=== PATIENT | male | born 1990 | race Caucasian/White ===

== ENCOUNTER 2021-02-07 23:23 | Emergency (ER) | payer SELFPAY ==
--- NOTE | 2021-02-07 23:47 | EDM.PDOC ---
ED HPI GENERAL MEDICAL PROBLEM - General Chief Complaint: Abdominal Pain Stated Complaint: ABDOMINAL PAIN Time Seen by Provider: 02/07/21 23:36 Source of Information: Reports: Patient History Limitations: Reports: No Limitations - History of Present Illness INITIAL COMMENTS - FREE TEXT/NARRATIVE: 30-year-old male past medical history cirrhosis, pancreatitis presents for abdominal pain. Patient is a very poor historian and seems to have very limited understanding of his health pathology. Patient was recently discharged from hospital in [place] after being diagnosed with pancreatitis and cirrhosis. He does endorse alcohol use. Patient had follow-up labs drawn and was called and told that all of his results are getting worse. He was told that his blood is "like somebody that took rat poison". When he heard this he was concerned that he might be bleeding in his abdomen since his pain has been increasing over the last couple of days. Denies fevers. Patient does state that he was given referrals for after his discharge from [place] but that he did not actually go through the paperwork or make any follow-up appointments. He states that he was told to start several medications but has not started any new medications. He was told that he may need a liver transplant. Abdomen Pain Score (Numeric/FACES): 7 - Related Data Allergies Allergy/AdvReac Type Severity Reaction Status Date / Time No Known Allergies Allergy Verified 02/07/21 23:39 Home Meds: Home Meds Amphetamine/Dextroamphetamine [Adderall] 20 mg PO TID 02/07/21 [History] ondansetron HCL [Zofran] 4 mg PO ASDIRECTED PRN 02/07/21 [History] ED ROS GENERAL - Review of Systems Review Of Systems: Comprehensive ROS is negative, except as noted in HPI. ED EXAM, GENERAL - Physical Exam Exam: See Below Exam Limited By: No Limitations General Appearance: Alert, WD/WN, No Apparent Distress Eye Exam: Bilateral Eye: Other (Scleral icterus) Ears: Hearing Grossly Normal Throat/Mouth: Normal Voice, No Airway Compromise Head: Atraumatic, Normocephalic Neck: Normal Inspection Respiratory/Chest: No Respiratory Distress, Lungs Clear, Normal Breath Sounds, No Accessory Muscle Use Cardiovascular: Normal Peripheral Pulses, Tachycardia GI/Abdominal: Soft, Non-Tender, Distended Extremities: Normal Inspection Neurological: Alert, Normal Cognition, Normal Gait Psychiatric: Normal Affect, Normal Mood Skin Exam: Warm, Dry, Intact, Normal Color Course - Vital Signs Last Recorded V/S: Last Vital Signs Temp 98.7 F 02/07/21 23:40 Pulse 108 H 02/08/21 01:35 Resp 18 02/08/21 01:35 BP 140/94 H 02/08/21 01:35 Pulse Ox 97 02/08/21 01:35 - Orders/Labs/Meds Orders: Active Orders 24 hr Category Date Time Status Sodium Chloride 0.9% [Saline Flush] Med 02/07/21 23:57 Active 10 ml FLUSH ASDIRECTED PRN Sodium Chloride 0.9% [Saline Flush] Med 02/07/21 23:57 Active 2.5 ml FLUSH ASDIRECTED PRN Saline Lock Insert [OM.PC] Stat Oth 02/07/21 23:57 Ordered Medication Orders Sodium Chloride (Sodium Chloride 0.9% 10 Ml Syringe) 10 ml FLUSH ASDIRECTED PRN PRN Reason: Keep Vein Open Sodium Chloride (Sodium Chloride 0.9% 2.5 Ml Syringe) 2.5 ml FLUSH ASDIRECTED PRN PRN Reason: Keep Vein Open Labs: Laboratory Tests 02/08/21 02/08/21 02/08/21 Range/Units 00:00 00:00 00:00 WBC 12.38 H (4.0-11.0) K/uL RBC 3.74 L (4.50-5.90) M/uL Hgb 12.6 L (13.0-17.0) g/dL Hct 35.4 L (38.0-50.0) % MCV 94.7 (80.0-98.0) fL MCH 33.7 H (27.0-32.0) pg MCHC 35.6 (31.0-37.0) g/dL RDW Std Deviation 56.3 (28.0-62.0) fl RDW Coeff of Grecia 16 H (11.0-15.0) % Plt Count 218 (150-400) K/uL MPV 9.30 (7.40-12.00) fL Neut % (Auto) 66.3 (48.0-80.0) % Lymph % (Auto) 21.7 (16.0-40.0) % Toombs % (Auto) 8.2 (0.0-15.0) % Eos % (Auto) 2.3 (0.0-7.0) % Baso % (Auto) 1.5 (0.0-1.5) % Neut # (Auto) 8.2 H (1.4-5.7) K/uL Lymph # (Auto) 2.7 H (0.6-2.4) K/uL Toombs # (Auto) 1.0 H (0.0-0.8) K/uL Eos # (Auto) 0.3 (0.0-0.7) K/uL Baso # (Auto) 0.2 H (0.0-0.1) K/uL Nucleated RBC % 0.0 /100WBC Nucleated RBCs # 0 K/uL INR 1.55 APTT 31.3 (18.6-31.3) SEC Sodium 139 (136-148) mmol/L Potassium 3.7 (3.5-5.1) mmol/L Chloride 101 (98-107) mmol/L Carbon Dioxide 28.6 (21.0-32.0) mmol/L BUN 4 L (7.0-18.0) mg/dL Creatinine 0.8 (0.8-1.3) mg/dL Est Cr Clr Drug Dosing 139.41 mL/min Estimated GFR (MDRD) > 60.0 ml/min Glucose 123 H (74-106) mg/dL Lactic Acid (0.4-2.0) mmol/L Calcium 8.4 L (8.5-10.1) mg/dL Magnesium 2.2 (1.8-2.4) mg/dL Total Bilirubin 7.5 H (0.2-1.0) mg/dL AST 234 H (15-37) IU/L ALT 99 H (14-63) IU/L Alkaline Phosphatase 218 H (46-116) U/L Ammonia (19-54) ug/dL Total Protein 8.0 (6.4-8.2) g/dL Albumin 3.1 L (3.4-5.0) g/dL Globulin 4.9 H (2.6-4.0) g/dL Albumin/Globulin Ratio 0.6 L (0.9-1.6) Lipase 1736 H (73-393) U/L Urine Color Urine Appearance Urine pH (5.0-8.0) Ur Specific Greer (1.001-1.035) Urine Protein (NEGATIVE) mg/dL Urine Glucose (UA) (NEGATIVE) mg/dL Urine Ketones (NEGATIVE) mg/dL Urine Occult Blood (NEGATIVE) Urine Nitrite (NEGATIVE) Urine Bilirubin (NEGATIVE) Urine Ictotest Urine Urobilinogen (<2.0) EU/dL Ur Leukocyte Esterase (NEGATIVE) U Hyaline Cast (Auto) (0-2/LPF) Urine RBC (0-2/HPF) Urine WBC (0-5/HPF) Ur Epithelial Cells (NONE-FEW) Urine Bacteria (NEGATIVE) Urine Mucus (NONE-MOD) Ethyl Alcohol 311 mg/dL 02/08/21 02/08/21 02/08/21 Range/Units 00:00 00:00 00:05 WBC (4.0-11.0) K/uL RBC (4.50-5.90) M/uL Hgb (13.0-17.0) g/dL Hct (38.0-50.0) % MCV (80.0-98.0) fL MCH (27.0-32.0) pg MCHC (31.0-37.0) g/dL RDW Std Deviation (28.0-62.0) fl RDW Coeff of Grecia (11.0-15.0) % Plt Count (150-400) K/uL MPV (7.40-12.00) fL Neut % (Auto) (48.0-80.0) % Lymph % (Auto) (16.0-40.0) % Toombs % (Auto) (0.0-15.0) % Eos % (Auto) (0.0-7.0) % Baso % (Auto) (0.0-1.5) % Neut # (Auto) (1.4-5.7) K/uL Lymph # (Auto) (0.6-2.4) K/uL Toombs # (Auto) (0.0-0.8) K/uL Eos # (Auto) (0.0-0.7) K/uL Baso # (Auto) (0.0-0.1) K/uL Nucleated RBC % /100WBC Nucleated RBCs # K/uL INR APTT (18.6-31.3) SEC Sodium (136-148) mmol/L Potassium (3.5-5.1) mmol/L Chloride (98-107) mmol/L Carbon Dioxide (21.0-32.0) mmol/L BUN (7.0-18.0) mg/dL Creatinine (0.8-1.3) mg/dL Est Cr Clr Drug Dosing mL/min Estimated GFR (MDRD) ml/min Glucose (74-106) mg/dL Lactic Acid 1.3 (0.4-2.0) mmol/L Calcium (8.5-10.1) mg/dL Magnesium (1.8-2.4) mg/dL Total Bilirubin (0.2-1.0) mg/dL AST (15-37) IU/L ALT (14-63) IU/L Alkaline Phosphatase (46-116) U/L Ammonia < 17 L (19-54) ug/dL Total Protein (6.4-8.2) g/dL Albumin (3.4-5.0) g/dL Globulin (2.6-4.0) g/dL Albumin/Globulin Ratio (0.9-1.6) Lipase (73-393) U/L Urine Color DARK YELLOW Urine Appearance CLEAR Urine pH 8.0 (5.0-8.0) Ur Specific Greer 1.020 (1.001-1.035) Urine Protein NEGATIVE (NEGATIVE) mg/dL Urine Glucose (UA) 100 H (NEGATIVE) mg/dL Urine Ketones NEGATIVE (NEGATIVE) mg/dL Urine Occult Blood NEGATIVE (NEGATIVE) Urine Nitrite NEGATIVE (NEGATIVE) Urine Bilirubin MODERATE H (NEGATIVE) Urine Ictotest POSITIVE Urine Urobilinogen >=8.0 H (<2.0) EU/dL Ur Leukocyte Esterase NEGATIVE (NEGATIVE) U Hyaline Cast (Auto) 0-2 (0-2/LPF) Urine RBC 0-2 (0-2/HPF) Urine WBC 1-3 (0-5/HPF) Ur Epithelial Cells FEW (NONE-FEW) Urine Bacteria FEW (NEGATIVE) Urine Mucus LIGHT (NONE-MOD) Ethyl Alcohol mg/dL Meds: Medications Generic Name Dose Route Start Last Admin Trade Name Freq PRN Reason Stop Dose Admin Sodium Chloride 10 ml 02/07/21 23:57 Sodium Chloride 0.9% 10 Ml Syringe FLUSH ASDIRECTED PRN Keep Vein Open Sodium Chloride 2.5 ml 02/07/21 23:57 Sodium Chloride 0.9% 2.5 Ml Syringe FLUSH ASDIRECTED PRN Keep Vein Open Discontinued Medications Generic Name Dose Route Start Last Admin Trade Name Fara PRN Reason Stop Dose Admin Iopamidol 100 ml 02/08/21 00:57 02/08/21 01:18 Iopamidol 755 Mg/Ml 100 Ml Bottle IVPUSH 02/08/21 00:58 100 ml ONETIME ONE Administration - Re-Assessments/Exams Free Text/Narrative Re-Assessment/Exam: 02/08/21 00:00 We will get labs and CT imaging of the abdomen and pelvis. Had a very long and detailed discussion with patient regarding his pathology and told him that he will likely need to be admitted or transferred for further work-up. Patient adamantly declines admission or transfer at this time and just wants lab results. Will get labs and will reassess. Patient declines analgesia. 02/08/21 01:10 Lab results were explained to patient and I advised him that he should stay in the hospital for further work-up. Patient declines admission. He is willing to stay for CT imaging of the abdomen pelvis. I had a very long discussion with the patient regarding his pathology and how dangerous alcohol is at this point. I informed him of risks of continued alcohol abuse including the need for frequent paracentesis procedures, the risk of intraabdominal infections, the risks of psychiatric and neurologic problems due to hyperammonemia, and the risks of bleeding from decreased platelet count and elevated INR. I explained that he needs urgent follow-up and establishment of care with a GI physician to come up with long-term plan for his pathology. I explained that the eventual outcome will be if he does not follow-up with a GI physician, take medications as prescribed, and avoid alcohol abuse. He voices understanding of all of these complications but would not like to be admitted to the hospital for further workup. 02/08/21 02:23 CT does show evidence of pancreatitis, esophageal varices, other abnormalities. Had a very long discussion with patient regarding disposition. Patient is unwilling to be transferred for further work-up but states that he will go in the morning after he takes care of some things at home. We will have to sign him out AGAINST MEDICAL ADVICE but that we will print his labs and imaging so that he can ensure follow-up tomorrow. I did offer to call the hospitalist here to have him admitted at our hospital if the hospitalist is comfortable with this plan however patient declines as he would rather be at a large tertiary care center that has GI coverage. Departure - Departure Time of Disposition: 02:25 Disposition: Against Medical Advice 07 Condition: Fair Clinical Impression: Pancreatitis Qualifiers: Chronicity: chronic Pancreatitis type: alcohol induced Qualified Code(s): K86.0 - Alcohol-induced chronic pancreatitis - Discharge Information Instructions: Chronic Pancreatitis Referrals: PCP,None [Primary Care Provider] - Forms: ED Department Discharge Additional Instructions: Please go to the hospital as early as you can. The following information is given to patients seen in the emergency department who are being discharged to home. This information is to outline your options for follow-up care. We provide all patients seen in our emergency department with a follow-up referral. The need for follow-up, as well as the timing and circumstances, are variable depending upon the specifics of your emergency department visit. If you don't have a primary care physician on staff, we will provide you with a referral. We always advise you to contact your personal physician following an emergency department visit to inform them of the circumstance of the visit and for follow-up with them and/or the need for any referrals to a consulting specialist. The emergency department will also refer you to a specialist when appropriate. This referral assures that you have the opportunity for follow-up care with a specialist. All of these measure are taken in an effort to provide you with optimal care, which includes your follow-up. Under all circumstances we always encourage you to contact your private physician who remains a resource for coordinating your care. When calling for follow-up care, please make the office aware that this follow-up is from your recent emergency room visit. If for any reason you are refused follow-up, please contact the [facility] Emergency Department at and asked to speak to the emergency department charge nurse. Please follow up with your primary care physician. If you do not have a primary care physician, see below: [facility] [address] [place] [id number] [id number] [facility] [address] [place] [id number] Sepsis Event Note (ED) - Focused Exam Vital Signs: Vital Signs Temp Pulse Resp BP Pulse Ox 02/08/21 01:35 108 H 18 140/94 H 97 02/07/21 23:40 98.7 F 122 H 18 148/102 H 97 - My Orders Last 24 Hours: My Active Orders 02/07/21 23:57 Sodium Chloride 0.9% [Saline Flush] 10 ml FLUSH ASDIRECTED PRN Sodium Chloride 0.9% [Saline Flush] 2.5 ml FLUSH ASDIRECTED PRN Saline Lock Insert [OM.PC] Stat - Assessment/Plan Last 24 Hours: My Active Orders 02/07/21 23:57 Sodium Chloride 0.9% [Saline Flush] 10 ml FLUSH ASDIRECTED PRN Sodium Chloride 0.9% [Saline Flush] 2.5 ml FLUSH ASDIRECTED PRN Saline Lock Insert [OM.PC] Stat
[2021-02-07] MEDS ORDERED: Sodium Chloride 0.9% 2.5 ML Syringe FLUSH PRN (23:57)
[2021-02-07] MEDS ORDERED: Sodium Chloride 0.9% 10 ML Syringe FLUSH PRN (23:57)
[2021-02-08 00:46] LABS: BLOOD UREA NITROGEN,BUN 4 mg/dL (7.0-18.0); CARBON DIOXIDE,CO2 28.6 mmol/L (21.0-32.0); CHLORIDE,CL 101 mmol/L (98-107); GLUCOSE RANDOM 123 mg/dL (74-106); LIPASE 1736 U/L (73-393); POTASSIUM,K 3.7 mmol/L (3.5-5.1); SODIUM,NA 139 mmol/L (136-148)
[2021-02-08] MEDS ORDERED: Iopamidol 755 Mg/ML 100 ML Bottle IVPUSH ONE (00:57)
--- NOTE | 2021-02-08 02:03 | CT ---
INDICATION: Abdominal pain. Recent diagnosis of pancreatitis. History of cirrhosis. CT ABDOMEN AND PELVIS WITH CONTRAST TECHNIQUE: Multidetector CT imaging was performed through the abdomen and pelvis following intravenous contrast administration using 100 mL Isovue 370. Coronal and sagittal reconstructions were generated. COMPARISON: None. FINDINGS: Lower chest: Lung bases are clear. Liver: Diffuse heterogeneity of liver density may reflect cirrhosis. Tiny indeterminate subcentimeter hypodensities, as seen in the left hepatic lobe on image 44 and in the right hepatic lobe on images 58 and 69, are too small to characterize. Multiple enlarged vessels in the upper abdomen, including distal esophageal varices, are consistent with portal venous hypertension. Gallbladder and bile ducts: Nonspecific mild gallbladder wall thickening. No calcified gallstones are seen. No biliary dilation identified. Pancreas: Mild peripancreatic fat stranding may represent acute pancreatitis. Retroperitoneal edema also extends inferiorly in the anterior right pararenal space and into the central mesentery. No evidence of pancreatic necrosis or pseudocyst. Spleen: Mild splenomegaly measuring 16.4 centimeters. Adrenals: No nodules or masses. Kidneys, ureters, and urinary bladder: No renal masses or hydronephrosis. No bladder mass or definite wall thickening. Gastrointestinal tract: Retroperitoneal edema along the descending segment of the duodenum is likely secondary to acute pancreatitis. No evidence of bowel obstruction. The appendix is normal. Mild wall thickening of the colon from the cecum to the mid transverse colon is nonspecific. Vascular structures: Normal for age. Peritoneum: No free air, abscess, or significant free fluid. Lymph nodes: No pathologically enlarged nodes identified. Reproductive organs: No pelvic masses. Bones: Unremarkable aside from chronic bilateral L5 pars defects without spondylolisthesis. IMPRESSION: 1. Peripancreatic stranding and retroperitoneal edema likely representing acute pancreatitis. Correlation with serum amylase/lipase is suggested. No evidence of pancreatic necrosis. 2. Cirrhosis with portal venous hypertension, splenomegaly, and distal esophageal varices. 3. At least 3 tiny subcentimeter hypodensities within the liver, not well characterized. Further evaluation with outpatient liver MRI is recommended. 4. Nonspecific mild gallbladder wall thickening, possibly secondary to cirrhosis. 5. Nonspecific mild wall thickening of the colon from the cecum to the mid transverse colon. This may be related to cirrhosis or hypoalbuminemia, although colitis is also possible. ILANA SEWELL MD [facility] [employer] Dictated by Arpan Sewell MD @ 02/08/2021 1:57:45 AM Please note that all CT scans at this facility use dose modulation, iterative reconstruction, and/or weight-based dosing when appropriate to reduce radiation dose to as low as reasonably achievable. Dictated by: Arpan Sewell MD @ 02/08/2021 02:02:35 (Electronically Signed)
== END 2021-02-08 02:35 | disposition left against medical advice (07) ==
LOC: MW.ED 23:23
DX: K86.0 Alcohol-induced chronic pancreatitis (principal); F10.10 Alcohol abuse, uncomplicated; Y90.8 Blood alcohol level of 240 mg/100 ml or more
CPT/HCPCS: 36415; 74177; 80053; 80307; 81001; 82140; 83605; 83690; 83735; 85025; 85610; 85730; 99284; Q9967